=== PATIENT | male | born 1955 | race Hispanic/Latino ===

== ENCOUNTER 2021-09-21 05:49 | Observation (INO) | payer MEDICARE ==
[2021-09-20 11:39] LABS: BASOPHILS # (AUTO) 0.1 (0.0-0.1); BASOPHILS % 0.7 % (0.0-1.0); EOSINOPHILS # (AUTO) 0.2 (0.0-0.4); EOSINOPHILS % 3.5 % (0.0-6.0); HEMATOCRIT 44.6 % (38.2-49.6); HEMOGLOBIN 14.8 g/dL (14.0-18.0); LYMPHOCYTES # (AUTO) 2.2 (1.0-3.2); LYMPHOCYTES % 32.7 % (18.0-39.1); MEAN CORPUSCULAR HEMOGLOBIN 30.7 pg (28-32); MEAN CORPUSCULAR HGB CONC 33.2 g/dL (31-35); MEAN CORPUSCULAR VOLUME 92.5 fL (81-99); MONOCYTES # (AUTO) 0.7 (0.2-0.8); MONOCYTES % 10.6 % (4.4-11.3); NEUTROPHILS # (AUTO) 3.6 (2.1-6.9); NEUTROPHILS % 52.4 % (38.7-80.0); PLATELET COUNT 249 x10e3/uL (140-360); RED BLOOD COUNT 4.82 x10e6/uL (4.3-5.7); RED CELL DISTRIBUTION WIDTH 12.6 % (11.7-14.4)
[2021-09-20 11:58] LABS: ANION GAP 15.8 mmol/L (8-16); CALCIUM 9.8 mg/dL (8.4-10.2); CREATININE, SERUM 1.16 mg/dL (0.72-1.25); POTASSIUM 3.8 mmol/L (3.5-5.1)
[~2021-09-21] VITALS: Ht 170.2 cm; Wt 96.6 kg
[~2021-09-21 05:49] MED LIST: AMLODIPINE BESYL5 MG PO; CRESTOR10 MG PO; GLYBURIDE-METF1 EAC1 PO; LISINOPRIL10 MG PO; OMEPRAZOLE40 MG PO; VITAMIN D3 COM1 EACH PO
[2021-09-21] MEDS ORDERED: DEXAMETHASONE SOD PHOS 10 MG/1 ML VIAL ONE (06:48)
[2021-09-21] MEDS ORDERED: CELECOXIB 200 MG CAP ONE (06:48)
[2021-09-21] MEDS ORDERED: GABAPENTIN 300 MG CAP ONE (06:48)
[2021-09-21] MEDS ORDERED: ROPIVACAINE 246.25 MG, EPINEPHRINE HCL 1:1000 1ML 0.5 MG, CLONIDINE HCL 0.08 MG, KETORO... INJ ONE ×5 (07:30)
[2021-09-21] MEDS ORDERED: SODIUM CHLORIDE 0.9% 500ML 500 ML ONE (07:51)
[2021-09-21] MEDS ORDERED: TRANEXAMIC ACID 20 ML ONE (07:52)
[2021-09-21] MEDS ORDERED: Vancomycin IV 1,000 MG ONE (07:52)
[2021-09-21] MEDS ORDERED: LIDOCAINE HCL 2% LOCAL INJ 5 ML SDV VIAL INJ ONE (07:55)
[2021-09-21] MEDS ORDERED: ONDANSETRON HCL INJ 2MG/ML 2ML 2 MG/ML VIAL ONE (07:55)
[2021-09-21] MEDS ORDERED: PROPOFOL IV EMULSION 10 MG/ML 20 ML VIAL ONE (07:55)
[2021-09-21] MEDS ORDERED: POVIDONE IODINE 0.05% 0.05 % ML PO ONE (07:55)
[2021-09-21] MEDS ORDERED: SEVOFLURANE INHAL SOLN 250 ML PEN BTL ONE (07:55)
[2021-09-21] MEDS ORDERED: EPHEDRINE SULFATE INJ 50 MG/ML VIAL ONE (07:55)
[2021-09-21] MEDS ORDERED: BUPIVACAINE 0.25% 30ML SDV ONE (08:15)
[2021-09-21] MEDS ORDERED: EPINEPHRINE HCL 1:1000 1ML 1 MG/ML AMP ONE (08:15)
[2021-09-21] MEDS ORDERED: ZOLPIDEM TARTRATE 5 MG TAB PO PRN (09:45)
[2021-09-21] MEDS ORDERED: DIPHENHYDRAMINE HCL INJ 50 MG/ML VIAL IV PRN (09:45)
[2021-09-21] MEDS ORDERED: KETOROLAC TROMETHAMINE 30 MG/ML VIAL IV PRN (09:45)
[2021-09-21] MEDS ORDERED: ACETAMINOPHEN 650 MG SUPP PR PRN (09:45)
[2021-09-21] MEDS ORDERED: DOCUSATE SODIUM 100 MG CAP PO PRN (09:45)
[2021-09-21] MEDS ORDERED: SODIUM CHLORIDE 0.9% 1000ML 1,000 ML IV SCH (09:45)
[2021-09-21] MEDS ORDERED: HYDROCODONE/APAP 7.5MG-325MG 1 EA TAB PO PRN (09:45)
[2021-09-21] MEDS ORDERED: HYDROCODONE/APAP 5MG-325MG TAB PO PRN (09:45)
[2021-09-21] MEDS ORDERED: ONDANSETRON HCL INJ 2MG/ML 2ML 2 MG/ML VIAL IV PRN (09:45)
[2021-09-21] MEDS ORDERED: MIDAZOLAM HCL 2 MG/2 ML VIAL ONE (09:58)
[2021-09-21] MEDS ORDERED: FENTANYL CITRATE/PF 100MCG/2 ML INJ ONE ×2 (09:58→10:21)
[2021-09-21 15:30] VITALS: BP 150/87
[2021-09-21 15:43] VITALS: BP 140/90
[2021-09-21] MEDS ORDERED: CELECOXIB 100 MG CAP PO SCH (17:00)
[2021-09-21] MEDS ORDERED: ASPIRIN 325 MG TAB PO SCH (17:00)
[2021-09-21] MEDS ORDERED: ACETAMINOPHEN 1000 MG/100 ML IV PRN (18:00)
== END 2021-09-21 19:57 | disposition home or self-care (01) ==
LOC: OR 05:49 → PACU V 09:45 → MED/SURG 15:26
PROVIDERS: ADMIT Specialist; ATTEND Specialist
DX: M17.0 Bilateral primary osteoarthritis of knee (principal); Z01.818 Encounter for other preprocedural examination; I10 Essential (primary) hypertension; E11.9 Type 2 diabetes mellitus without complications; Z20.822 Contact with and (suspected) exposure to COVID-19
CPT/HCPCS: 0223U; 27447; 36415 ×2; 71046; 73560; 80048; 82948; 85025; 86850; 86900; 86920; 93005; 94799; 97110; 97116; 97161; 97530; C1713; G0378; J0171; J0690; J1100; J1885; J2795; J3010; J3370; J7030; J7040; J2001; J2250; J2405